=== PATIENT | female | born 2000 ===

== ENCOUNTER 2025-04-30 00:53 | Emergency (ER) | payer OTHER, SELFPAY ==
[2025-04-30 00:57] VITALS: BP 123/76; PULSE 91; RESP 20; TEMP 36.2; O2SAT 99; BMI 35.7
--- NOTE | 2025-04-30 02:04 | ED_ITS ---
HPI - General Adult General Chief complaint: Animal Bite Stated complaint: Animal Bite Time Seen by Provider: 04/30/25 01:58 Source: patient Limitations: no limitations History of Present Illness ED Provider: Charlee Jensen PA-C HPI narrative: 25-year-old female presents with bite wound. Patient states her cat bit her in the right 2nd digit, tetanus up-to-date. The cat's vaccines are current as well. Related Data Previous Rx's ?Medication ?Instructions ?Recorded amoxicillin 875 mg-potassium 1 tab PO Q12H #9 tabs clavulanate 125 mg tablet Allergies Allergy/AdvReac Type Severity Reaction Status Date / Time No Known Allergies Allergy Verified 04/30/25 00:59 Review of Systems Review of Systems: Yes all other systems are reviewed and are negative Constitutional: Constitutional: Denies fatigue and Denies fever(s) Musculoskeletal: Musculoskeletal: Reports arthralgias and Denies joint swelling Integumentary/Breasts: Skin/Breast: Denies erythema and Reports wounds Endocrine: Endocrine: Denies fatigue PMFSH Past Medical History Attestation statement: The following information was validated with the patient. Physical Exam ED Vital Signs: Vital Signs - 24 hr 04/30/25 00:57 Temperature 97.1 F Pulse Rate 91 Respiratory Rate 20 Blood Pressure 123/76 Pulse Oximetry 99 Oxygen Delivery Method Room Air BMI result Body Mass Index 35.7 Const Other: Alert Orientation/consciousness: patient oriented x3 Resp Effort & Inspection: normal respiratory effort Cardio Other: Normal peripheral perfusion Skin Other: Warm dry no rash Neuro General: patient oriented x3, gait normal, no focal motor deficits and CN's II- XI intact bilaterally Extrem Other: Contusion/ ecchymosis noted along the nail bed margin on the dorsum of the right 2nd digit, pinpoint puncture noted over the pad of the same digit, no bleeding Psych Other: Cooperative Medical Decision Making Medical Decision Making [facility] Narrative: 25-year-old female presents with bite wound. Patient states her cat bit her in the right 2nd digit, tetanus up-to-date. The cat's vaccines are current as well No chronic issues History: Per patient I have considered the following differential diagnoses: Animal Bite wound, rabies prophylaxis, foreign body Plan: We will start the patient on prophylactic Augmentin, there is no concern for foreign body, Differential Diagnosis Differential Diagnoses: The differential diagnosis associated with the presentation includes See MDM Admission/Observation Consideration of admission/observation: Escalation of care including admission/observation considered Not applicable Discharge Plan Discharge Clinical Impression: Cat bite Patient Disposition: Home, Self-Care Instructions: Animal Bite (ED) Additional Instructions: See home care instructions for your cat bite. We are starting you on prophylactic antibiotics, to help prevent infection. Be sure to complete the course of this antibiotic. Watch for signs of infection which would include redness, swelling, pus draining from the puncture site, a red line tracking up your arm or fever. If you develop any of these symptoms seek medical attention. Prescriptions: New amoxicillin-pot clavulanate 875-125 mg tablet 1 tab PO Q12H Qty: 9 0RF
--- OUTSIDE RECORDS SUMMARY | 2025-04-30 02:12 | XMS_ITS | Encounter Summary ---
Author Organization [facility] Address [address] [place] [address] Phone Care Team Providers Care Community Health Director Name Role Phone Blanca Russo MD Primary Care Provider + [phone] Encounter Details Date Type Department Care Team (Latest Contact Info) Description 07/17/2024 Transcribe Orders Virtual Department [address] [place] [address] Spenser Cardoza, DO [address] [facility] [place] [address] [email or web address] Excessive and frequent menstruation with regular cycle (Primary Dx) Social History Tobacco Use Types Packs/Day Years Used Date Smoking Tobacco: Never Smokeless Tobacco: Never Alcohol Use Standard Drinks/Week Comments Not Currently 0 (1 standard drink = 0.6 oz pur e alcohol) Education Answer Date Recorded Are you interested in more education? Not on yady e 06/08/2024 Are you concerned about learning? Not on file 06/08/2024 No 06/08/2024 No 06/08/2024 Digital Access Answer Date Recorded No 06/08/2024 No 06/08/2024 Reliable internet access at home? Not on file 06/08/2024 Device with a working camera? Not on file Intimate Partner Violence Answer Date R ecorded Are you denied basic needs s uch as food, clothing, or medical care? No 06/07/2024 In the past 12 months have y ou been in a relationship with a person who hurts, threatens, or tries to control you? No 06/07/2024 Are you denied basic needs s uch as food, clothing, or medical care? No 06/07/2024 In the past 12 months have y ou been in a relationship with a person who hurts, threatens, or tries to control you? No 06/07/2024 Comments Unknown Sex and Gender Information Value Date Recorded Sex Assigned at Female 06/07/2024 8:14 PM EST Legal Sex Female 7:28 PM EST Gender Identity Female 06/07/2024 8:14 PM EST Sexual Orientation Queer 06/07/2024 8: 14 PM EST documented as of this encounter Plan of Treatment Not on file documented as of this encounter Results * US PELVIS TRANSABDOMINAL PLUS TRANSVAGINAL (07/18/2024 6:40 PM EDT) Anatomical Region Laterality Modality Pelvis, Uterus/Adnexa Ultrasound 07/19/2024 4:31 PM EDT Impressions 07/19/2024 4:33 PM EDT Thickened endometrium measuring 18 mm. Gynecologic evaluation recommended. Narrative 07/19/2024 4:33 PM EDT US PELVIS TRANSABDOMINAL AND TRANSVAGINAL Referring clinician's provided indication for this examination in Epic: Outside Radiology Order; menorrhagia TECHNIQUE: Pelvic Ultrasound Transabdominal performed for global imaging of the pelvis. Pelvic Ultrasound Transvaginal performed for detailed imaging of the endometrium and/or adnexa. COMPARISON: There is no prior study available for comparison. FINDINGS: Uterus: Size: 8.3 x 4.6 x 1.3 cm. Orientation: anteverted Myometrium: Normal. Endometrium: Endometrium is thickened measuring 18 mm. Right adnexa: Ovary: Normal. The right ovary measures 3.7 x 3.0 x 3.0 cm. There is a dominant simple appearing follicle, physiologic in a premenopausal patient. No evidence of solid mass or cyst greater than 3 cm. There is normal color Doppler flow to the ovary. . Left adnexa: Ovary: Normal. The left ovary measures 3.0 x 2.8 x 1.5 cm. No evidence of solid mass or cyst greater than 3 cm. There is normal color Doppler flow to the ovary. Free fluid: No significant free fluid. Procedure Note Elva Rapp MD - 07/19/2024 US PELVIS TRANSABDOMINAL AND TRANSVAGINAL Referring clinician's provided indication for this examination in Epic:Outside Radiology Order; menorrhagia TECHNIQUE: Pelvic Ultrasound Transabdominal performed for global imagingof the pelvis. Pelvic Ultrasound Transvaginal performed for detailedimaging of the endometrium and/or adnexa. COMPARISON: There is no prior study available for comparison. FINDINGS: Uterus: Size: 8.3 x 4.6 x 1.3 cm. Orientation: anteverted Myometrium: Normal. Endometrium: Endometrium is thickened measuring 18 mm. Right adnexa: Ovary: Normal. The right ovary measures 3.7 x 3.0 x 3.0 cm. There is a dominantsimple appearing follicle, physiologic in a premenopausal patient. Noevidence of solid mass or cyst greater than 3 cm. There is normal colorDoppler flow to the ovary. . Left adnexa: Ovary: Normal. The left ovary measures 3.0 x 2.8 x 1.5 cm. No evidence of solidmass or cyst greater than 3 cm. There is normal color Doppler flow to theovary. Free fluid: No significant free fluid. IMPRESSION: Thickened endometrium measuring 18 mm. Gynecologic evaluationrecommended. us Spenser Cardoza DO IMG US PELVIS Final Result documented in this encounter Visit Diagnoses Diagnosis Excessive and frequent menstruation with regular cycle- Primary Excessive and frequent menstruation with regular cycle documented in this encounter Care Teams Community Health Director Relationship Specialty Start Date End Date Blanca Russo MD [address] [place] [id number] PCP - General Teacher Adult Education 06/08/24 documented as of this encounter Additional Source Comments The information contained in this document represents components of the legal health record. It is not the complete legal health record.[facility]
--- OUTSIDE RECORDS SUMMARY | 2025-04-30 02:12 | XMS_ITS | Clinical Summary ---
Author Organization [facility] Address [address] [place] [address] Care Team Providers Care Wire Coiner Name Role Phone Unavailable Primary Care Provider Unavailabl e Social History Tobacco Use Types Packs/Day Years Used Date Smoking Tobacco: Never Assessed Comments Unknown Sex and Gender Information Value Date Recorded Sex Assigned at Not on file Legal Sex Female 6:16 PM EST Gender Identity Not on file Sexual Orientation Not on file Plan of Treatment Health Maintenance Due Date Last Done Comments HPV Vaccines (1 - 3-dose series) 2014 DTaP,Tdap,and Td Vaccines (1 - Tdap) 2018 Hepatitis B Vaccines (1 of 3 - 19+ 3-dose series) 2018 Cervical Cancer Screening: P ap Smear 01/20/2020 Depression Screening 05/07/2024 COVID-19 Vaccine (1 - 2024-2 6 season) 2025 Influenza Vaccine (#1) 2025 RSV Immunization Adult Patie nts (1 - 1-dose 75+ series) 2074 HIB Vaccines Aged Out No longer eligi ble based on patient's age to complete this topic Hepatitis A Vaccines Aged Out No long er eligible based on patient's age to complete this topic IPV Vaccines Aged Out No longer eligi ble based on patient's age to complete this topic MMR Vaccines Aged Out No longer eligi ble based on patient's age to complete this topic Meningococcal ACWY Vaccine Aged Out N o longer eligible based on patient's age to complete this topic Meningococcal B Vaccine Aged Out No l onger eligible based on patient's age to complete this topic Pneumococcal Vaccine: Pediat rics (0 to 5 Years) and At-Risk Patients (6 to 49 Years) Aged Out No longer eligible b ased on patient's age to complete this topic RSV Immunization Patients Un sulaiman 20 months Aged Out No longer eligible b ased on patient's age to complete this topic Varicella Vaccines Aged Out No longer eligible based on patient's age to complete this topic
--- OUTSIDE RECORDS SUMMARY | 2025-04-30 02:12 | XMS_ITS | Clinical Summary ---
Author Organization [facility] Address [address] [place] [phone] Phone Care Team Providers Care Land Development Project Manager Name Role Phone Blanca Russo MD Primary Care Provider + [phone] Allergies Active Allergy Reactions Criticality Noted Date Comments Lactose GI Upset High 04/26/2023 Medications escitalopram oxalate (LEXAPRO) 20 MG tablet Take 20 mg by mouth daily. Active buPROPion (WELLBUTRIN XL) 150 MG ER 24 hr tablet Take 1 tablet by mouth every morning. Active ipratropium (ATROVENT) 42 mcg (0.06 %) nasal spray SPRAY 2 SPRAYS INTO EACH NOSTRIL 3 TIMES A DAY FOR 4 DAYS Active triamcinolone acetonide 0.1 % cream 1 APPLICATION TOPICALLY 2 TIMES A DAY,FOR ECZEMA Active VITAMIN B-12 1000 MCG tablet 5 Active ASCORBIC ACID WITH ADONAY HIPS 500 MG tablet 5 Active ergocalciferol (DRISDOL) 50,000 unit capsule Take 1 capsule by mouth once a week. 5 Active multivitamins with iron Tab Take 1 tablet by mouth daily. 90 tablet 3 5 07/24/19 Active ibuprofen (ADVIL,MOTRIN) 200 MG tablet Take 1 tablet (200 mg total) by mouth every 6 (six) hours as needed for pain (specific location in comments). 90 tablet 1 5 07/24/19 26 Active Family History Relation Status Comments Father Maternal Grandfather Alive Maternal Grandmother Alive Mother Alive Sister Alive Social History Tobacco Use Types Packs/Day Years Used Date Smoking Tobacco: Never Smokeless Tobacco: Never Tobacco Cessation:Counseling Given: Not Answered Alcohol Use Standard Drinks/Week Comments Not Currently [...] tries to control you? No 06/07/2024 Comments No Sex and Gender Information Value Date Recorded Sex Assigned at Female 06/07/2024 8:14 PM EST Legal Sex Female 7:28 PM EST Gender Identity Female 06/07/2024 8:14 PM EST Sexual Orientation Queer 06/07/2024 8: 14 PM EST Last Filed Vital Signs Vital Sign Reading Time Taken Comments Blood Pressure 112/70 07/23/2024 11:28 AM EDT Pulse 78 07/01/2024 2:27 PM EST Temperature 36.8 C (98.2 F) 07/01/2024 2:27 PM EST Respiratory Rate 16 07/01/2024 2:27 PM EST Oxygen Saturation 98% 07/01/2024 2:27 PM EST Inhaled Oxygen Concentration - - Weight 81.6 kg (180 lb) 07/23/2024 11:28 AM EDT Height 160 cm (5' 3 ) 07/23/2024 11:28 AM EDT Body Mass Index 31.89 07/23/2024 11:28 AM EDT Plan of Treatment Health Maintenance Due Date Last Done Comments Adult Td,Tdap Booster 1999 DEPRESSION SCREENING 2011 HPV VACCINES (1 - 3-dose series) 2014 HEPATITIS C SCREENING 2017 HIV ONE-TIME SCREENING (18-6 5 YEARS) 2017 PAP SMEAR 01/20/2020 INFLUENZA VACCINE (#1) 2024 COVID-19 VACCINE (2024-2 6 season) 2025 SMOKING STATUS SCREENING (On ce After 26 Yrs) Completed 07/23/2024 HEPATITIS A VACCINES Aged Out No long er eligible based on patient's age to complete this topic HIB VACCINES Aged Out No longer eligi ble based on patient's age to complete this topic MENINGOCOCCAL VACCINES (ACWY) Aged Out No longer eligible based on patient's age to complete this topic MENINGOCOCCAL VACCINES (B) Aged Out N o longer eligible based on patient's age to complete this topic PNEUMOCOCCAL VACCINES (0-49 years) Aged Out No longer eligible based on patient's age to complete this topic Medical Devices Not on file Insurance [address] [id number] [facility] Right Skills [facility] ACO [facility] HEALTHY PARTNERSHIP ACO [facility] HEALTHY PARTNERSHIP [facility] HEALTHY PARTNERSHIP [facility] Care Teams Land Development Project Manager Relationship Specialty Start Date End Date Blanca Russo MD [address] [place] [phone] PCP - General Industrial Welder 06/08/24 Additional Source Comments The information contained in this document represents components of the legal health record. It is not the complete legal health record.[facility]
--- OUTSIDE RECORDS SUMMARY | 2025-04-30 02:12 | XMS_ITS | Encounter Summary ---
Author Organization [facility] Address [address] [place] [address] Phone Care Team Providers Care Supervisor Yard Name Role Phone Blanca Russo MD Primary Care Provider + [phone] Encounter Details Date Type Department Care Team (Latest Contact Info) Description 08/20/2024 Transcribe Orders Virtual Department [address] [place] [address] Spenser Cardoza, DO [address] [facility] [place] [address] [email or web address] Bilateral shoulder pain, unspecified chronicity (Primary Dx) Social History Tobacco Use Types [...] as of this encounter Plan of Treatment Scheduled Orders Name Type Priority Associated Diagnoses Orde r Schedule XR Shoulder (Left) Imaging Routine Bilateral shoulder pain, unspecified chronicity Expected: 08/20/2024, Expires: 08/20/2025 XR Shoulder (Right) Imaging Routine Bilateral shoulder pain, unspecified chronicity Expected: 08/20/2024, Expires: 08/20/2025 documented as of this encounter Visit Diagnoses Diagnosis Bilateral shoulder pain, unspecified chronicity- Primary documented in this encounter Care Teams Supervisor Yard Relationship Specialty Start Date End Date Blanca Russo MD [address] [place] [phone] PCP - General Rip Machine Operator 06/08/24 documented as of this encounter Additional Source Comments The information contained in this document represents components of the legal health record. It is not the complete legal health record.[facility]
--- OUTSIDE RECORDS SUMMARY | 2025-04-30 02:12 | XMS_ITS | Encounter Summary ---
Author Organization [facility] Address [address] [place] [address] Phone Care Team Providers Care Bottom Brusher Name Role Phone Blanca Russo MD Primary Care Provider + [phone] Encounter Details Date Type Department Care Team (Late st Contact Info) Description 07/03/2024 Transcribe Orders [facility] [address] [place] [address] Spenser Cardoza, DO [address] [facility] [place] [address] [email or web address] Social History Tobacco Use Types Packs/Day Years [...] on file documented as of this encounter Visit Diagnoses Not on filedocumented in this encounter Care Teams Bottom Brusher Relationship Specialty Start Date End Date Blanca Russo MD [address] [place] [id number] PCP - General Rfp Writer 06/08/24 documented as of this encounter Additional Source Comments The information contained in this document represents components of the legal health record. It is not the complete legal health record.[facility]
[2025-04-30 02:25] VITALS: BP 105/69; PULSE 86; RESP 18; TEMP 36.8; O2SAT 100
[2025-04-30 02:29] VITALS: BP 105/69; PULSE 86; RESP 18; TEMP 36.8; O2SAT 100
== END 2025-04-30 02:30 | disposition home or self-care (01) ==
PROVIDERS: Emergency Provider Emergency Medicine
DX: S61.250A Open bite of right index finger without damage to nail, initial encounter (principal); W55.01XA Bitten by cat, initial encounter; Y93.9 Activity, unspecified; Y92.9 Unspecified place or not applicable; Y99.8 Other external cause status
CPT/HCPCS: 99282